=== PATIENT | male | born 2000 | race African-American/Black ===

== ENCOUNTER 2025-04-30 16:19 | Emergency (ER) | payer MEDICAID ==
[~2025-04-30] VITALS: Ht 180.3 cm; Wt 78.0 kg
[2025-04-30 16:27] VITALS: TEMP 36.9; O2SAT 100
[2025-04-30] MEDS: METOCLOPRAMIDE HCL 10MG TABLET PO ONE (17:23)
[2025-04-30] MEDS: DIPHENHYDRAMINE 25MG CAPSULE PO ONE (17:23)
[2025-04-30] MEDS: KETOROLAC 30MG/ML VIAL IM ONE (17:24)
[2025-04-30 18:28] LABS: HEMATOCRIT. 44.5 % (42.0-52.0); HEMOGLOBIN. 14.0 g/dL (14.0-18.0); MEAN PLATELET VOLUME 8.8 fl (7.4-10.4); PLATELET 239 x1000/uL (130-400); RED BLOOD CELL COUNT 6.84 mill/uL (4.7-6.1); RED CELL DISTRIBUTION WIDTH 15.7 % (11.6-14.6)
[2025-04-30] MEDS ORDERED: DOXY100C5 MT (18:35)
[2025-04-30] MEDS ORDERED: IBUP-1455 MT (18:36)
[2025-04-30 18:43] LABS: CREATININE 0.9 mg/dL (0.6-1.3); UREA NITROGEN BLOOD 9 mg/dL (9-23)
[2025-04-30 18:58] LABS: EOSINOPHILS % MANUAL 1.0 % (0.0-5.0); LYMPHOCYTES % MANUAL 1.0 % (20.0-50.0); MONOCYTES % MANUAL 3.0 % (2.0-8.0); NEUTROPHILS % MANUAL 95.0 % (45.0-75.0); PLATELET ESTIMATE NORMAL
[2025-04-30] MEDS: CEFTRIAXONE SODIUM 500MG VIAL IM ONE (18:59)
[2025-04-30 19:20] VITALS: BP 141/89; PULSE 86; RESP 16; O2SAT 100
[2025-05-03 04:09] LABS: HSV TYPE 2 SPECIFIC AB IGG Non Reactive (Non Reactive)
== END 2025-04-30 19:21 | disposition home or self-care (01) ==
LOC: ER 16:19
DX: J06.9 Acute upper respiratory infection, unspecified (principal); J45.909 Unspecified asthma, uncomplicated; F19.90 Other psychoactive substance use, unspecified, uncomplicated; Z11.3 Encounter for screening for infections with a predominantly sexual mode of transmission; Z98.890 Other specified postprocedural states
CPT/HCPCS: 86695; 86696; 80048; 85025; 86592; 36415; 96372; 99284; Q0163; J8597; J0696; J1885; Z7610